=== PATIENT | female | born 1950 | race Asian ===

== ENCOUNTER 2016-09-22 11:40 | Emergency (ER) | payer OTHER ==
[2016-09-22 11:47] VITALS: BMI 27.3
[2016-09-22 12:28] LABS: BASOPHIL 1.6 % (0-2.0); EOSINOPHIL 0.3 % (0-4.5); MCH 29.9 pg (25.7-33.7); MCHC 32.8 g/dl (32.0-36.0); MEAN CELL VOLUME 91.1 fl (80-96); MEAN PLT VOLUME 9.4 fl (7.5-11.1); NEUTROPHILS 76.5 % (42.8-82.8); PLATELET COUNT 424 K/MM3 (134-434); RDW 13.4 % (11.6-15.6); WHITE BLOOD COUNT 10.7 K/mm3 (4.0-10.8)
[2016-09-22 12:35] LABS: PH,URINE 5.5 (4.5-8); URINE BILIRUBIN Negative (NEGATIVE); URINE BLOOD Negative (NEGATIVE); URINE GLUCOSE (UA) Negative (NEGATIVE); URINE KETONE Negative (NEGATIVE); URINE LEUK ESTERASE Negative (NEGATIVE); URINE NITRITE Negative (NEGATIVE); URINE UROBILINOGEN 0.2 E.U/dl (0.2-1.0)
[2016-09-22 12:36] LABS: ALBUMIN 4.3 g/dl (3.5-5.0); ALK PHOS 58 U/L (32-92); ANION GAP 8 (8-16); BILIRUBIN,TOTAL 0.8 mg/dl (0.2-1.0); CALCIUM 10.2 mg/dl (8.4-10.2); CO2 29 mmol/L (22-28); CREATININE 0.8 mg/dl (0.6-1.3); GLUCOSE,RANDOM 231 mg/dl (74-106); SGOT/AST 24 U/L (10-42); SGPT/ALT 25 U/L (10-40); TOT PROT 7.3 g/dl (6.4-8.3)
[2016-09-22] MEDS ORDERED: ONDANSETRON 4 MG/2 ML VIAL IVPB ONE (12:46)
[2016-09-22 12:50] LABS: URINE COLOR YELLOW; URINE PROTEIN 1+ (NEGATIVE)
--- NOTE | 2016-09-22 12:50 | PDOC ---
History of Present Illness - General Chief Complaint: Nausea/Vomiting Stated Complaint: NAUSEA/VOMITING Time Seen by Provider: 09/22/16 12:18 - History of Present Illness Initial Comments: 09/22/16 12:48 72-year-old female with a past medical history of AODM and hypertension Surgical [id number] She's had vomiting since Friday evening, and is vomited multiple times and unable to keep anything down She feels tired and lightheaded, and is getting to the point where she feels too weak to stand and walk She denies any blood in her vomitus There's been no diarrhea There's been no abdominal pain No fever and chills No chest pain She last vomited this morning A niece may have been sick with similar symptoms recently She denies any chest pain or shortness of breath She denies any other complaints at this time, and the remainder of the review of systems is negative Past History - Past Medical History Allergies/Adverse Reactions: Allergies Allergy/AdvReac Type Severity Reaction Status Date / Time No Known Allergies Allergy Verified 09/22/16 11:42 Home Medications: Ambulatory Orders Metformin HCl [Glucophage -] 0 mg PO BID 09/22/16 Ondansetron [Zofran Odt -] 4 mg SL TID PRN #14 od.tablet 09/22/16 Diabetes: Yes HTN: Yes - Psycho/Social/Smoking Cessation Hx Anxiety: No Suicidal Ideation: No Smoking History: Never smoked Hx Alcohol Use: No Drug/Substance Use Hx: No Substance Use Type: None *Physical Exam - Vital Signs Last Vital Signs Temp Pulse Resp BP Pulse Ox 98.9 F 75 18 181/65 96 09/22/16 11:41 09/22/16 11:41 09/22/16 11:41 09/22/16 11:41 09/22/16 11:41 - Physical Exam Comments: 09/22/16 12:49 Physical exam Last Vital Signs Temp Pulse Resp BP Pulse Ox 98.9 F 75 18 181/65 96 09/22/16 11:41 09/22/16 11:41 09/22/16 11:41 09/22/16 11:41 09/22/16 11:41 GENERAL: The patient is awake, alert, and fully oriented, and in no apparent distress. HEAD: Normal with no signs of trauma. EYES: sclera anicteric, conjunctiva are normal. ENT: nares patent, oropharynx clear without exudates. Moist mucous membranes. NECK: Normal range of motion, supple LUNGS: Breath sounds equal, clear to auscultation bilaterally. No wheezes, and no crackles. HEART: Regular rate and rhythm, normal S1 and S2 without murmur, rub or gallop. ABDOMEN: Soft, nontender, normoactive bowel sounds. No guarding, no rebound. No masses appreciated. Abdomen is completely soft and nontender EXTREMITIES: Normal range of motion, no edema. No clubbing or cyanosis. No cords, erythema, or tenderness. NEUROLOGICAL: Cranial nerves II through XII grossly intact. Normal speech, normal gait. PSYCH: Normal mood, normal affect. SKIN: Warm, Dry, normal turgor, no rashes or lesions noted. ED Treatment Course - LABORATORY CBC & Chemistry Diagram: 09/22/16 12:07 09/22/16 12:07 - ADDITIONAL ORDERS Additional order review: 09/22/16 12:07 RBC 4.32 MCV 91.1 MCHC 32.8 RDW 13.4 MPV 9.4 Neutrophils % 76.5 Lymphocytes % 16.4 Monocytes % 5.2 Eosinophils % 0.3 Basophils % 1.6 - RADIOLOGY Radiology Studies Ordered: Category Date Time Status ABDOMEN & PELVIS CT W/O CONTR [CT] Stat CT Scan 09/22/16 12:44 Ordered CHEST X-RAY PORTABLE* [RAD] Stat Radiology 09/22/16 12:44 Ordered Medical Decision Making - Medical Decision Making 09/22/16 14:34 EKG Normal sinus rhythm with occasional PVCs Left axis deviation First degree AV block Normal QRS duration Normal QTC LVH with repolarization abnormality There is no old EKG for comparison at this time Labwork reviewed Laboratory Results - last 24 hr 09/22/16 09/22/16 09/22/16 12:07 12:07 12:07 WBC 10.7 RBC 4.32 Hgb 12.9 Hct 39.4 MCV 91.1 MCHC 32.8 RDW 13.4 Plt Count 424 MPV 9.4 Neutrophils % 76.5 Lymphocytes % 16.4 Monocytes % 5.2 Eosinophils % 0.3 Basophils % 1.6 Sodium 136 Potassium 4.1 Chloride 99 Carbon Dioxide 29 H Anion Gap 8 BUN 38 H Creatinine 0.8 Creat Clearance w eGFR > 60 Random Glucose 231 H Calcium 10.2 Magnesium Total Bilirubin 0.8 AST 24 ALT 25 Alkaline Phosphatase 58 Creatine Kinase 347 H CK-MB (CK-2) 6.9 H Troponin I < 0.03 L Total Protein 7.3 Albumin 4.3 Lipase Urine Color Urine Appearance Urine pH Ur Specific Edison Urine Protein Urine Glucose (UA) Urine Ketones Urine Blood Urine Nitrite Urine Bilirubin Urine Urobilinogen Ur Leukocyte Esterase 09/22/16 09/22/16 12:29 12:46 WBC RBC Hgb Hct MCV MCHC RDW Plt Count MPV Neutrophils % Lymphocytes % Monocytes % Eosinophils % Basophils % Sodium Potassium Chloride Carbon Dioxide Anion Gap BUN Creatinine Creat Clearance w eGFR Random Glucose Calcium Magnesium 2.1 Total Bilirubin AST ALT Alkaline Phosphatase Creatine Kinase CK-MB (CK-2) Troponin I Total Protein Albumin Lipase 48 Urine Color Yellow Urine Appearance Cloudy Urine pH 5.5 Ur Specific Edison 1.025 Urine Protein 1+ H Urine Glucose (UA) Negative Urine Ketones Negative Urine Blood Negative Urine Nitrite Negative Urine Bilirubin Negative Urine Urobilinogen 0.2 e.u/dl Ur Leukocyte Esterase Negative Labwork reviewed and consistent with dehydration CT scan of the abdomen and pelvis without contrast No definite CT findings of acute pathology No acute cholecystitis Chest x-ray Enlarged heart with mild congestive changes 09/22/16 15:46 Feeling much better after 1 L in medications, tolerating clear liquids Will start giving part of the second liter Will repeat the CK 09/22/16 17:19 Repeat lab work reviewed CK improved Laboratory Results - last 24 hr 09/22/16 09/22/16 09/22/16 12:07 12:07 12:07 WBC 10.7 RBC 4.32 Hgb 12.9 Hct 39.4 MCV 91.1 MCHC 32.8 RDW 13.4 Plt Count 424 MPV 9.4 Neutrophils % 76.5 Lymphocytes % 16.4 Monocytes % 5.2 Eosinophils % 0.3 Basophils % 1.6 Sodium 136 Potassium 4.1 Chloride 99 Carbon Dioxide 29 H Anion Gap 8 BUN 38 H Creatinine 0.8 Creat Clearance w eGFR > 60 Random Glucose 231 H Calcium 10.2 Magnesium Total Bilirubin 0.8 AST 24 ALT 25 Alkaline Phosphatase 58 Creatine Kinase 347 H CK-MB (CK-2) 6.9 H Troponin I < 0.03 L Total Protein 7.3 Albumin 4.3 Lipase Urine Color Urine Appearance Urine pH Ur Specific Edison Urine Protein Urine Glucose (UA) Urine Ketones Urine Blood Urine Nitrite Urine Bilirubin Urine Urobilinogen Ur Leukocyte Esterase Urine RBC Urine WBC Ur Epithelial Cells Uric Acid Crystals Amorphous Urates Urine Bacteria 09/22/16 09/22/16 09/22/16 12:29 12:46 15:33 WBC RBC Hgb Hct MCV MCHC RDW Plt Count MPV Neutrophils % Lymphocytes % Monocytes % Eosinophils % Basophils % Sodium Potassium Chloride Carbon Dioxide Anion Gap BUN Creatinine Creat Clearance w eGFR Random Glucose Calcium Magnesium 2.1 Total Bilirubin AST ALT Alkaline Phosphatase Creatine Kinase 290 H CK-MB (CK-2) 5.5 H Troponin I < 0.03 L Total Protein Albumin Lipase 48 Urine Color Yellow Urine Appearance Cloudy Urine pH 5.5 Ur Specific Edison 1.025 Urine Protein 1+ H Urine Glucose (UA) Negative Urine Ketones Negative Urine Blood Negative Urine Nitrite Negative Urine Bilirubin Negative Urine Urobilinogen 0.2 e.u/dl Ur Leukocyte Esterase Negative Urine RBC None seen Urine WBC None seen Ur Epithelial Cells 2+ Uric Acid Crystals Moderate Amorphous Urates Moderate Urine Bacteria 1+ Patient feeling much better after 2 L of IV normal saline Smiling, eating clear liquid tray without difficulty Most likely viral gastroenteritis Zofran, clear liquids, increase fluid intake Will send urine culture-most likely just contaminated specimen, especially with 2+ epithelial cells, no UTI symptoms *DC/Admit/Observation/Transfer Diagnosis at time of Disposition: Vomiting, Gastroenteritis - Discharge Dispostion Disposition: HOME Condition at time of disposition: Improved - Patient Instructions Printed Discharge Instructions: DI for Vomiting -- Adult, DI for Nausea -- Adult Additional Instructions: Zofran-one pill under the tongue to dissolve every 6-8 hours if needed for nausea and vomiting Increase fluid intake Clear liquid diet for the next 24 hours-Tea, Jell-O, broth, Pedialyte, water ice , etc Then gradually increase diet as directed Followup with your primary care physician in 24-48 hours Return immediately if you worsen in any way Take your medications as directed
[2016-09-22 12:52] LABS: COCKROFT - GAULT NT
[2016-09-22 13:00] LABS: TROPONIN I (DFP) < 0.03 ng/ml (0.03-0.50)
[2016-09-22] MEDS ORDERED: SODIUM CHLORIDE 1,000 ML IV SCH ×2 (13:00→14:45)
[2016-09-22 13:06] LABS: MAGNESIUM 2.1 mg/dL (1.8-2.4)
[2016-09-22 13:12] LABS: URINE APPEARANCE CLOUDY
[2016-09-22] MEDS ORDERED: ONDANSETRON 4 MG/2 ML VIAL ONE (13:19)
[2016-09-22 14:01] LABS: CK MB 6.9 ng/ml (0.3-4.0)
[2016-09-22 14:05] LABS: CPK(DFH) 347 IU/L (26-140)
[2016-09-22 14:22] VITALS: BP 131/58; PULSE 83; TEMP 99
[2016-09-22 15:53] LABS: URIC ACID CRYSTALS MODERATE /hpf (NONE SEEN); URINE BACTERIA 1+ /hpf (NEGATIVE); URINE RBC NONE SEEN /hpf (0-3); URINE WBC NONE SEEN (3-5)
[2016-09-22 16:59] LABS: CPK(DFH) 290 IU/L (26-140)
[2016-09-22 17:11] LABS: CK MB 5.5 ng/ml (0.3-4.0); TROPONIN I (DFP) < 0.03 ng/ml (0.03-0.50)
--- NOTE | 2016-09-23 10:40 | EKG ---
Test Reason : Blood Pressure : / mmHG Vent. Rate : 079 BPM Atrial Rate : 079 BPM P-R Int : 202 ms QRS Dur : 092 ms QT Int : 378 ms P-R-T Axes : 057 -14 127 degrees QTc Int : 433 ms SINUS RHYTHM WITH 1ST DEGREE A-V BLOCK WITH OCCASIONAL PREMATURE VENTRICULAR COMPLEXES POSSIBLE LEFT ATRIAL ENLARGEMENT LEFT VENTRICULAR HYPERTROPHY WITH REPOLARIZATION ABNORMALITY ABNORMAL ECG NO PREVIOUS ECGS AVAILABLE Confirmed by JONO ALFONSO, REYNALDO ([id number]) on 09/23/2016 10:39:51 AM Referred By: JESSIKA BEARD Confirmed By:REYNALDO DE LA CRUZ MD
== END 2016-09-22 17:30 | disposition home or self-care (01) ==
LOC: EDBD → FER 11:40
PROC: 3E033GC Introduction of Other Therapeutic Substance into Peripheral Vein, Percutaneous Approach (ICD-10-PCS; principal; 2016-09-22)
PROC: 3E0337Z Introduction of Electrolytic and Water Balance Substance into Peripheral Vein, Percutaneous Approach (ICD-10-PCS; 2016-09-22)
DX: K52.9 Noninfective gastroenteritis and colitis, unspecified (principal); R11.10 Vomiting, unspecified; E11.8 Type 2 diabetes mellitus with unspecified complications; Z79.84 Long term (current) use of oral hypoglycemic drugs; I10 Essential (primary) hypertension
CPT/HCPCS: 36415; 71010-TC; 74176-TC; 80053; 81003; 81015; 82550; 82553; 83690; 83735; 84484; 85025; 87086; 93005; 99283-25

== ENCOUNTER 2016-09-24 13:52 | Emergency (ER) | payer OTHER ==
[2016-09-24] MEDS ORDERED: SODIUM CHLORIDE 1,000 ML IV ONE (14:07)
[2016-09-24] MEDS ORDERED: METOCLOPRAMIDE HCL INJECTION 10 MG/2 ML VIAL IVPUSH ONE (14:07)
--- NOTE | 2016-09-24 14:26 | PDOC ---
History of Present Illness <Jere Canela - Last Filed: 09/24/16 18:16> - General History Source: Patient Exam Limitations: No Limitations - History of Present Illness Initial Comments: 09/24/16 19:25 The patient is a 66 year old female, with a significant past medical history of HTN and DM who presents to the emergency department with worsening nausea, vomiting, and weakness. The patient reports being in this ER, about 2 days ago presenting with similar symptoms. Her workup while in this ER included lab work with 2 negative troponins. She reports being discharged home on , and arrives today with worsening of her symptoms. The pt also admits to using fentanyl patches from her PMD for shoulder pain, which she used 2 of accidentaly on and removed on friday. The patient reports after leaving the ER about 2 days ago feeling much better, but had her symptoms return about 2-3 days after being discharged. She reports not being able to walk secondary to dizziness and nausea. She reports when she gets up the room and everything around her starts to spin and would resolve dwhne she is lying still. Looking from side to side would also make her very dizzy.. She reports her dizziness is often alleviated when she sits down. She describes her vomiting as watery and nonbilious. She denies recent fevers, chills or headache. She denies recent diarrhea or constipation. She denies recent dysuria , frequency, urgency or hematuria. She denies recent chest pain palpitations, or shortness of breath. Allergies: NKA Past surgical history: None reported. Social history: Nonsmoker. Denies EtOH use and recreational drug use. <Jassi Epps - Last Filed: 09/24/16 19:25> - General Chief Complaint: Nausea/Vomiting Stated Complaint: OVERDOSE OF PATCH? VOMITING Time Seen by Provider: 09/24/16 13:58 Past History - Past Medical History Diabetes: Yes HTN: Yes - Psycho/Social/Smoking Cessation Hx Anxiety: No Suicidal Ideation: No Smoking History: Never smoked Hx Alcohol Use: No Drug/Substance Use Hx: No Substance Use Type: None <Jere Canela - Last Filed: 09/24/16 18:16> <Jassi Epps - Last Filed: 09/24/16 19:25> - Past Medical History Allergies/Adverse Reactions: Allergies Allergy/AdvReac Type Severity Reaction Status Date / Time No Known Allergies Allergy Verified 09/24/16 13:53 Home Medications: Ambulatory Orders Metformin HCl [Glucophage -] 0 mg PO BID 09/22/16 Ondansetron [Zofran Odt -] 4 mg SL TID PRN #14 od.tablet 09/22/16 FENTANYL 100mcg PATCH [DURAGESIC 100mcg PATCH -] 75 each TD Q72H 09/24/16 Meclizine HCl [Antivert -] 25 mg PO TID PRN #21 tablet 09/24/16 Ondansetron [Zofran -] 4 mg PO TID PRN #14 tablet 09/24/16 Review of Systems - Review of Systems Able to Perform ROS?: Yes Comments:: 09/24/16 19:25 CONSTITUTIONAL: + Generalized Weakness. No reported: Fever, Chills, Diaphoresis, Malaise, Loss of Appetite HEENT: No reported: Rhinorrhea, Nasal Congestion, Throat Pain, Throat Swelling, Difficulty Swallowing, Mouth Swelling, Ear Pain, Eye Pain, Visual Changes CARDIOVASCULAR: No reported: Chest Pain, Syncope, Palpitations, Irregular Heart Rate, Lightheadedness, Peripheral Edema RESPIRATORY: No reported: Cough, Shortness of Breath, SOB with Exertion, Orthopnea, Wheezing , Stridor, Hemoptysis GASTROINTESTINAL: +nausea and vomiting. No reported: Abdominal pain, Abdominal Distension, Diarrhea, Constipation, Melena, Hematochezia GENITOURINARY: No reported: Dysuria, Frequency, Urgency, Hesitancy, Flank Pain, Genital Pain MUSCULOSKELETAL: No reported: Myalgia, Arthralgia, Joint Swelling, Back pain, Neck Pain SKIN: No reported: Rash, Itching, Pallor HEMATOLOGIC/IMMUNOLOGIC: No reported: Easy Bleeding, Easy Bruising, Lymphadenopathy, Frequent infections ENDOCRINE: No reported: Unexplained Weight Gain, Unexplained Weight Loss, Heat Intolerance , Cold Intolerance NEUROLOGIC: +dizziness/vertigo. No reported: Headache, Focal Weakness, Paresthesias, Lightheadedness, Unsteady Gait, Seizure, Mental Status Changes, Incontinence PSYCHIATRIC: No reported: Anxiety, Depression <Jassi Epps - Last Filed: 09/24/16 19:25> *Physical Exam - Vital Signs Last Vital Signs Temp Pulse Resp BP Pulse Ox 98.3 F 64 17 196/75 97 09/24/16 13:52 09/24/16 13:52 09/24/16 13:52 09/24/16 13:52 09/24/16 13:52 - Physical Exam Comments: 09/24/16 19:25 GENERAL: The patient is awake, alert, and fully oriented, Nontoxic - in no acute distress. HEAD: Normocephalic, atraumatic. EYES: extraocular movements intact, sclera anicteric, conjunctiva clear, extinguishing horizontal nystagmus noted ENT: Normal voice, Moist mucous membranes. NECK: Normal range of motion, supple LUNGS: Breath sounds equal, clear to auscultation bilaterally. No wheezes, no rhonchi, no rales. HEART: Regular rate and rhythm, without murmur, rub or gallop. ABDOMEN: Soft, nontender, normoactive bowel sounds. No guarding, no rebound.No CVA tenderness EXTREMITIES: Normal range of motion, no edema. No clubbing or cyanosis. No cords , erythema, or tenderness. PSYCH: Normal mood, normal affect. SKIN: Warm, Dry, normal turgor. NEURO: Mental status: The patient is oriented x3. Cranial nerves: Cranial nerves II through XII are intact Motor: The upper extremities are 5 over 5 in all muscle groups. The lower extremities are 5 over 5 in all muscle groups. No pronator drift. Sensation: Sensation is intact to light touch throughout. Neg romberg Cerebellar: Itatof-fnacwd-semq is normal in both upper extremities. Heel -knee-riggins is normal in both lower extremities. Reflexes: 2+ and symmetric in the upper and lower extremities. Gait: Normal. <Jassi Epps - Last Filed: 09/24/16 19:25> Heart Score/ECG Review - ECG Impressions Comment:: 09/24/16 15:03 Twelve-lead EKG was performed and reviewed by me. There is normal sinus rhythm with a normal rate. Rate of 60 LVH First degree AV block There is normal R wave progression There are no ST or T wave abnormalities. <Jere Canela - Last Filed: 09/24/16 18:16> ED Treatment Course - LABORATORY CBC & Chemistry Diagram: 09/24/16 15:38 09/24/16 15:38 <Jere Canela - Last Filed: 09/24/16 18:16> - LABORATORY CBC & Chemistry Diagram: 09/24/16 15:38 09/24/16 15:38 <Jassi Epps - Last Filed: 09/24/16 19:25> Medical Decision Making - Medical Decision Making 09/24/16 15:00 66y F hx of DM, HTN presents with dizziness/vomiting. The pt states that she inadvertently used 2 fentanyl patches on , she started feeling dizzy, came to the ED on friday was hydrated and was feeling better. She realized her problem and took th efentanyl patches off on friday and felt alittle better, however she has continued to feel very vertiginous/room spinning dizziness when she is sitting up or looking left/right that resolves when she is in areclined position. no fever/chills, cp, sob, abd pain, diarrhea/bpr/melena. pts exam is unremarbkle with normal finger to nose, rapid alternating movments, normal cn exam, horizontal extinguishing nystagmus noted suspect possible vertigo vs. dehydration from opiate withdrawal no central signs of vertigo will give fluids, zofran, meclizine will ck basic labs ct head to r/o cva will reassess 09/24/16 18:16 pt feeling improved labs reviewed unremarkabl ct head neagative pt able to stand up and ambulate w/o assistance will dc with meclizine and zofran w pmd and neuro fu return precuations were discussed I discussed the physical exam findings, ancillary test results and final diagnoses with the patient. I answered all of the patient's questions. The patient was satisfied with the care received and felt comfortable with the discharge plan and treatment plan. The patient will call their primary care physician within 24 hours to arrange follow-up and will return to the Emergency Department with any new, persistent or worsening symptoms. <Jere Canela - Last Filed: 09/24/16 18:16> *DC/Admit/Observation/Transfer - Discharge Dispostion Admit: No <Jere Canela - Last Filed: 09/24/16 18:16> - Attestations Scribe Attestion: 09/24/16 14:4 Documentation prepared by Jassi Epps, acting as medical art therapist for Jere Canela MD. <Jassi Epps - Last Filed: 09/24/16 19:25> Diagnosis at time of Disposition: Vertigo - Discharge Dispostion Disposition: HOME Condition at time of disposition: Improved - Prescriptions Prescriptions: Meclizine HCl [Antivert -] 25 mg PO TID PRN #21 tablet PRN Reason: Vertigo Ondansetron [Zofran -] 4 mg PO TID PRN #14 tablet PRN Reason: Nausea - Referrals Referrals: Osmany Camara DO [Staff Physician] - - Patient Instructions Printed Discharge Instructions: DI for Vertigo Additional Instructions: Return to the emergency department immediately with ANY new, persistent or worsening symptoms. Take meclizine for the dizziness and zofran for the nausea. You MUST call and follow up with your doctor tomorrow for further evaluation of your symptoms. Results were discussed with you. Please make sure your doctor reviews the results of your emergency evaluation. Print Language: KHMER
[2016-09-24 14:30] VITALS: TEMP 98.3; BMI 28.3
[2016-09-24] MEDS ORDERED: MECLIZINE HCL 25 MG TABLET (FP) PO ONE (14:58)
[2016-09-24] MEDS ORDERED: MECLIZINE HCL 25 MG TABLET (FP) ONE (15:45)
[2016-09-24 16:02] LABS: ALBUMIN 3.8 g/dl (3.5-5.0); ALK PHOS 57 U/L (32-92); ANION GAP 8 (8-16); BILIRUBIN,TOTAL 1.2 mg/dl (0.2-1.0); CALCIUM 9.4 mg/dl (8.4-10.2); CO2 28 mmol/L (22-28); CREATININE 0.5 mg/dl (0.6-1.3); GLUCOSE,RANDOM 208 mg/dl (74-106); SGOT/AST 36 U/L (10-42); SGPT/ALT 29 U/L (10-40); TOT PROT 6.7 g/dl (6.4-8.3)
[2016-09-24 16:10] LABS: MCH 29.9 pg (25.7-33.7); MCHC 33.3 g/dl (32.0-36.0); MEAN CELL VOLUME 89.6 fl (80-96)
[2016-09-24 16:20] LABS: URINE APPEARANCE Clear; URINE BILIRUBIN Negative (NEGATIVE); URINE BLOOD Negative (NEGATIVE); URINE GLUCOSE (UA) 1+ (NEGATIVE); URINE KETONE Negative (NEGATIVE); URINE LEUK ESTERASE Negative (NEGATIVE); URINE NITRITE Negative (NEGATIVE); URINE PROTEIN Negative (NEGATIVE); URINE UROBILINOGEN 0.2 E.U/dl (0.2-1.0)
[2016-09-24 16:21] LABS: URINE COLOR YELLOW
[2016-09-24 16:24] LABS: BASOPHIL 2.6 % (0-2.0); EOSINOPHIL 2.6 % (0-4.5); MEAN PLT VOLUME 9.4 fl (7.5-11.1); NEUTROPHILS 61.8 % (42.8-82.8); PLATELET COUNT 354 K/MM3 (134-434); RDW 13.1 % (11.6-15.6)
[2016-09-24 18:21] VITALS: BP 144/77; PULSE 67
--- NOTE | 2016-09-25 10:30 | EKG ---
Test Reason : Blood Pressure : / mmHG Vent. Rate : 060 BPM Atrial Rate : 060 BPM P-R Int : 212 ms QRS Dur : 086 ms QT Int : 420 ms P-R-T Axes : 060 -14 060 degrees QTc Int : 420 ms SINUS RHYTHM WITH 1ST DEGREE A-V BLOCK POSSIBLE LEFT ATRIAL ENLARGEMENT LEFT VENTRICULAR HYPERTROPHY NONSPECIFIC T WAVE ABNORMALITY ABNORMAL ECG WHEN COMPARED WITH ECG OF 22-SEP-2016 13:16, PREMATURE VENTRICULAR COMPLEXES ARE NO LONGER PRESENT NONSPECIFIC T WAVE ABNORMALITY HAS REPLACED INVERTED T WAVES IN LATERAL LEADS Confirmed by ALVA ALFONSO, KAREEN ([id number]) on 09/25/2016 10:29:57 AM Referred By: RADHA FARMER Confirmed By:KAREEN CALLE MD
== END 2016-09-24 18:26 | disposition home or self-care (01) ==
LOC: EDBD 13:52 → FER 13:52
PROC: 3E033GC Introduction of Other Therapeutic Substance into Peripheral Vein, Percutaneous Approach (ICD-10-PCS; principal; 2016-09-24)
PROC: 3E0337Z Introduction of Electrolytic and Water Balance Substance into Peripheral Vein, Percutaneous Approach (ICD-10-PCS; 2016-09-24)
DX: R42 Dizziness and giddiness (principal); I10 Essential (primary) hypertension; E11.9 Type 2 diabetes mellitus without complications
CPT/HCPCS: 36415; 70450-TC; 80053; 81003; 83690; 85025; 93005; 99284-25